=== PATIENT | female | born 1960 | race African-American/Black ===

== ENCOUNTER 2024-03-04 22:07 | Emergency (ER) | payer OTHER, SELFPAY ==
[2024-03-04 22:21] VITALS: BP 137/67
--- NOTE | 2024-03-04 22:49 | ED.GENMED ---
History of Present Illness
<GRANT Thomas - Last Filed: 03/04/24 23:01>
General
Chief Complaint: Nose Bleed
Source: patient
Time Seen by Provider: 03/04/24 22:45
Travel History
Have you had any contact with someone who has COVID-19?: No
Do you have any symptoms of coronavirus? Fever > 100 degrees, chills, cough, shortness of breath, sore throat, loss of taste or smell, muscle aches, or headache?: No
History of Present Illness
History of Present Illness:
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 Pt states she went to the bathroom after dinner and had mild
bleeding out of her L nostril. States she coughed up a pea-sized blood clot. She placed cloth to stop the bleeding and it resolved. Denies chest pain, SOB, head ache, fevers/chills. Denies recent cough, cold, nasal congestion. Denies any recent
trauma to the nose. No use of nasal sprays. No recent illnesses. No recent travel.
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 She has annual brain MRI which shows no progression.
Past History
<GRANT Thomas - Last Filed: 03/04/24 23:01>
Social History
Tobacco: Non-smoker
Alcohol: None
Drug: None
Review of Systems
<GRANT Thomas - Last Filed: 03/04/24 23:01>
Review of Systems
Allergies reviewed?: Yes
All Other Systems: ROS reviewed and negative except as documented in HPI and ROS
Constitutional: Reports no symptoms
EENT: Reports other (nose bleed)
Respiratory: Reports no symptoms
Cardiac: Reports no symptoms
ABD/GI: Reports no symptoms
: Reports no symptoms
Musculoskeletal: Reports no symptoms
Skin: Reports no symptoms
Neurological: Reports no symptoms
Endocrine: Reports no symptoms
Phy Exam
<GRANT Thomas - Last Filed: 03/04/24 23:01>
General Physical Exam
General Presentation: well appearing and no apparent distress
General age: appears stated age
General Skin: warm and dry
General Habitus: normal
General Mental: alert
General Hydration: appears well hydrated
ENT Exam
ENT Exam: pharynx normal, lymphnodes and swallowing well
Additional ENT: Nasal turbinates without blood or discharge, nonerythematous.
Cardiovascular Exam
Cardiovascular Exam: regular rate/rhythm, no edema, no gallop and no murmur
Pulmonary Exam
Pulmonary Exam: lungs clear, no respiratory distress, no rales, no crackles, no rhonchi, no wheezing and no cough
Neurological Exam
Neurological Exam: alert and oriented x3
Skin Exam
Skin Exam: normal color and warm/dry
Psychiatric Exam
Psychiatric Exam: normal mood/affect
Course
<GRANT Thomas - Last Filed: 03/04/24 23:01>
Vital Signs
Initial and Last Documented VS:
Initial Vital Signs
Temp Pulse Resp BP Pulse Ox
98.1 F 83 18 137/67 100
03/04/24 22:21 03/04/24 22:21 03/04/24 22:21 03/04/24 22:21 03/04/24 22:21
Last Documented Vital Signs
Temp Pulse Resp BP Pulse Ox
98.1 F 83 18 137/67 100
03/04/24 22:21 03/04/24 22:21 03/04/24 22:21 03/04/24 22:21 03/04/24 22:21
<Sheela Marsh DO - Last Filed: 03/04/24 23:17>
Vital Signs
Initial and Last Documented VS:
Initial Vital Signs
Temp Pulse Resp BP Pulse Ox
98.1 F 83 18 137/67 100
03/04/24 22:21 03/04/24 22:21 03/04/24 22:21 03/04/24 22:21 03/04/24 22:21
Last Documented Vital Signs
Temp Pulse Resp BP Pulse Ox
98.1 F 83 18 137/67 100
03/04/24 22:21 03/04/24 22:21 03/04/24 22:21 03/04/24 22:21 03/04/24 22:21
<GRANT Thomas - Last Filed: 03/04/24 23:01>
MDM/Problems Addressed
Differential Diagnosis Includes:
nasal tumor, nasal trauma, dryness of nasal mucosa
MDM/Problems Addressed:
64 year old female who presents for an episode of epistaxis out of the R nostril that occurred at 2030 today.
<GRANT Thomas - Last Filed: 03/04/24 23:01>
*Critical Care Note
Total Time (30-74mins, 75-104mins- exclusive of procedures): Not Applicable
<Sheela Marsh DO - Last Filed: 03/04/24 23:17>
*Pulse Oximetry
Patient hypoxic: no
ED Attending Note
<GRANT Thomas - Last Filed: 03/04/24 23:01>
-
Portions of this chart may have been created with voice recognition software.� Occasional wrong word or��sound alike� substitutions may have occurred due to the inherent limitations of voice recognition software.
<Sheela Marsh DO - Last Filed: 03/04/24 23:17>
ED Attending Note
Patient seen and examined by attending physician: Yes
I performed the substantive portion of visit, reviewed & personally made and approve the management plan that is documented in note by myself or INNA.: Yes
I performed a history and physical exam of patient and discussed management with resident, I reviewed resident's note and agree with documented findings and plan of care.: Yes
ED Attending Note:
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 She follows annually with brain MRIs with last February 28, 2023. Thus far no evidence of recurrence, MRIs have been stable.
She does admit to mild nasal congestion over the past week or 2 with mild intermittent headaches more so when she is outdoors but no fever no chills, no cough, no rhinorrhea, no earache.
Tonight around 8:30 PM she noticed spontaneous bleeding from her left nostril. She reports very small amount of bleeding from left nostril and mild postnasal drip and coughed up a scant amount of blood. Epistaxis resolved promptly with brief
course of local pressure. She has had no recurrence. No history of similar episodes in the past. She takes no anticoagulants.
GENERAL: 64-year-old woman appears younger than stated age, bright and alert, pleasant, appears in no acute distress. and daughter are accompanying. Vital signs within normal limits.
EYE: pupils equal and reactive. anicteric
NECK: Supple, nontender, no meningismus, no significant adenopathy.
ENT: posterior pharynx is clear, no blood streaking nor postnasal drip noted, oral mucosa is moist. TM clear b/l, there is a scant small streak of blood along the inferior anterior nasal septum. No active bleeding. Very minimal erythema to the
anterior septum but no ulcerations. Turbinates are moderately boggy, pale blue. No rhinorrhea.
CARDIAC: Regular rate and rhythm. no murmur.
LUNGS: Clear breath sounds bilaterally, no acute respiratory distress, no wheezes/rales/rhonchi
NEUROLOGICAL: Alert and oriented x3, no focal neuro deficits. Gait is stroud and steady.
SKIN: Warm and dry, normal color, skin intact. No rash.
MUSCULOSKELETAL: No C/C/E. peripheral pulses are full and equal b/l. No palpable tenderness.
PSYCH: Normal and appropriate interaction.
Patient presents with spontaneous left nostril epistaxis, overall mild promptly resolved without recurrence. She is noted to have very scant blood left nostril but no active bleeding.
Turbinates are moderately boggy pale blue in color consistent with allergic rhinitis.
Pituitary microadenoma resection 2018 with stable, unremarkable, annual MRIs.
She takes no anticoagulants and reports no history of bleeding disorder.
At this point with history of mild bleeding that stopped spontaneously, she does not appear to require nasal packing nor cauterization.
Recommend supportive measures, avoiding blowing, sniffing as well as picking her nose over the next 3 days, thereafter recommend initiating saline nasal spray.
Follow-up with PCP as needed.
Return precautions discussed.
Discharge Plan
Departure
Patient Disposition: Home (Routine Discharge)
Date of Disposition: 03/04/24
Time of Disposition: 23:03
Patient with high blood pressure during this ER visit?: No
Condition: Good
Discharge Problem:
Acute anterior epistaxis
Instructions: Nosebleeds (DC)
Activity Restrictions/Additional Instructions:
Over the next 3 days, no blowing, no sniffing, no picking your nose. Thereafter, I want you to start saline nasal spray, 2 sprays each nostril twice daily.
If nosebleed recurs, pinch your nose hard or conversely use nasal clip and keep in place for at least 10 to 15 minutes. If ineffective�if bleeding persists continue to pinch nose, continue nasal clip and return to the ER for further evaluation.
Follow-up with your primary care physician for recheck as needed.
Interventions
Interventions:
*Risk Screen - Suicide Last Done: 03/04/24 22:21
*General Assessment Last Done: 03/04/24 22:21
*Neglect/Abuse Screening Last Done: 03/04/24 22:21
ED- Fall Risk Assessment Last Done: 03/04/24 22:39
ED-EENT Assessment Last Done: 03/04/24 22:39
Discharge Date and Time
Print Language: CROATIAN
== END 2024-03-04 23:20 | disposition home or self-care (01) ==
LOC: EMR 22:07
PROVIDERS: EMERGENCY PHYSICIAN Emergency Medicine; FAMILY PHYSICIAN Nurse Practitioner Adult Health
DX: R04.0 Epistaxis (principal)
CPT/HCPCS: 99282

== ENCOUNTER → 2024-04-11 14:00 | Outpatient (REF) | payer OTHER, SELFPAY | LOC: PAVMRI 14:00 | PROVIDERS: ATTENDING PHYSICIAN Nurse Practitioner Adult Health; FAMILY PHYSICIAN Nurse Practitioner Adult Health; REFERRING PHYSICIAN Neurological Surgery | DX: D35.2 Benign neoplasm of pituitary gland (principal) | CPT/HCPCS: 70553; A9575 ==

== ENCOUNTER → 2024-07-25 17:10 | Outpatient (REF) | payer OTHER, SELFPAY | LOC: WDC 17:10 | PROVIDERS: ATTENDING PHYSICIAN Nurse Practitioner Adult Health | DX: Z12.31 Encounter for screening mammogram for malignant neoplasm of breast (principal) | CPT/HCPCS: 77063; 77067 ==

== ENCOUNTER → 2025-07-26 16:56 | Outpatient (REF) | payer OTHER, SELFPAY | LOC: WDC 16:56 | PROVIDERS: ATTENDING PHYSICIAN Nurse Practitioner Adult Health | DX: Z12.31 Encounter for screening mammogram for malignant neoplasm of breast (principal) | CPT/HCPCS: 77063; 77067 ==

== ENCOUNTER 2025-09-20 17:52 | Emergency (ER) | payer OTHER, SELFPAY ==
[2025-09-20 17:54] VITALS: BP 160/88
[2025-09-20 18:02] LABS: Glucose - Point of Care 110 mg/dl (70-99)
[2025-09-20 18:10] LABS: Hematocrit 42.7 % (37.0-47.0); Hemoglobin 14.1 g/dL (12.0-16.0); Mean Corp Hgb Conc. 33.0 g/dL (33.0-37.0); Mean Corpuscular Volume 93.4 fL (81.0-99.0); Nucleated Red Blood Cells % 0 %; Platelet Count 192 10^3/uL (130-400); Red Cell Dist. Width 12.2 % (11.5-14.5)
[2025-09-20 18:22] LABS: ALT (SGPT) 19 U/L (0-35); AST (SGOT) 24 U/L (14-36); Albumin 4.8 g/dl (3.5-5.0); Alkaline Phosphatase 84 U/L (38-126); Blood Urea Nitrogen 15 mg/dl (7-17); Calcium 10.0 mg/dl (8.4-10.2); Carbon Dioxide 30 mmol/L (22-30); Chloride 101 mmol/L (98-107); Glucose 116 mg/dl (70-99); Potassium 4.0 mmol/L (3.5-5.1); Sodium 136 mmol/L (135-145); Total Protein 7.8 g/dl (6.3-8.2); eGFR > 60.00
[2025-09-20 20:25] VITALS: BP 143/68
[2025-09-20 21:00] VITALS: BP 122/58
--- NOTE | 2025-09-20 21:08 | ED.GENMED ---
History of Present Illness
General
Chief Complaint: Dizziness
Time Seen by Provider: 09/20/25 20:48
History of Present Illness
History of Present Illness:
65-year-old female presents to the emergency department for evaluation as she also reports a mild headache at this time with no vision changes, fever, or neck pain. No obvious provoking or palliating factors to the dizziness. Reports one of the
episodes that occur with near syncope. No chest pain or dyspnea. Has a prior history of a brain mass status post excision approximately 3 years ago.
Past History
Social History
Tobacco: Non-smoker
Alcohol: None
Drug: None
Review of Systems
Review of Systems
Allergies reviewed?: Yes
All Other Systems: ROS reviewed and negative except as documented in HPI and ROS
Phy Exam
Physical Exam
Physical Exam:
GEN: Well appearing, NAD, WDWN
HEENT: Oral mucosa moist, no scleral icterus, no nasal congestion
Cardiac: Regular rate and rhythm, no murmur
Lung: No respiratory distress, no tachypnea, lungs clear to auscultation bilaterally
MSK: No gross deformity or injuries
Skin: Good color, no pallor or jaundice, no rashes
Neuro: AO x3; CN II-XII grossly intact. BUE strength 5/5 in all rodriguez, sensation intact and symmetric. BLE strength 5/5 in all rodriguez, sensation intact and symmetric
Psych: Calm, cooperative
Course
Orders/Labs/Results
Orders:
Orders
09/20/25 17:54
Electrocardiogram (*1) Urgent
Reason for Study: Vertigo / Dizzy
EKG- Treatment ONCE
09/20/25 18:01
Complete Blood Count/With Diff Urgent
Comprehensive Metabolic Panel Urgent
09/20/25 21:08
Add On- LAB Urgent
Tests Added?: carboxyhemoglobin
CT Head W/o Iv Contrast Urgent
Comment:
Reason For Exam: dizziness
09/20/25 22:32
Carboxyhemoglobin Urgent
Comment: CANNOT ADD ON. MUST BE COLLECTED.
Abnormal Lab Results
09/20/25 09/20/25
18:00 18:01
MPV 11.7 H fL
(7.4-10.4)
Glucose 116 H mg/dl
(70-99)
POC Glucose 110 H mg/dl
(70-99)
09/20/25 18:01
09/20/25 18:01
Vital Signs
Initial and Last Documented VS:
Initial Vital Signs
Temp Pulse Resp BP Pulse Ox
98 F 78 16 160/88 98
09/20/25 17:54 09/20/25 17:54 09/20/25 17:54 09/20/25 17:54 09/20/25 17:54
Last Documented Vital Signs
Temp Pulse Resp BP Pulse Ox
98 F 78 16 126/62 100
09/20/25 17:54 09/20/25 22:32 09/20/25 22:42 09/20/25 22:32 09/20/25 22:32
MDM/Problems Addressed
MDM/Problems Addressed:
Labs and imaging reassuring. Negative carboxyhemoglobin. Clinical presentation not consistent with benign positional vertigo. No clinical signs of cardiac dysrhythmia. Unclear etiology however recommend she follow-up with primary care physician
for further workup if symptoms persist
Comment
Comment:
EKG independently interpreted by me shows a normal sinus rhythm at a rate of [address] changes concerning for ischemia
*Pulse Oximetry
SaO2: 98
Oxygen Mode of Delivery: Room air
Patient hypoxic: no
*Critical Care Note
Total Time (30-74mins, 75-104mins- exclusive of procedures): Not Applicable
ED Attending Note
-
Portions of this chart may have been created with voice recognition software.� Occasional wrong word or��sound alike� substitutions may have occurred due to the inherent limitations of voice recognition software.
Discharge Plan
Departure
Patient Disposition: Home (Routine Discharge)
Date of Disposition: 09/20/25
Time of Disposition: 22:47
Patient with high blood pressure during this ER visit?: No
Discharge Problem:
Dizziness
Instructions: Dizziness, Nonvertigo, (DC)
Referrals:
Tawnya Rosales CRNP [Family Provider, General]
Interventions
Interventions:
*Risk Screen - Suicide Last Done: 09/20/25 17:56
*General Assessment Last Done: 09/20/25 21:56
*Neglect/Abuse Screening Last Done: 09/20/25 17:56
*ED COVID-19 Vaccine History Last Done: 09/20/25 22:42
*ED Influenza Vaccine History Last Done: 09/20/25 22:42
[facility] Fall Risk Assessment Tool Last Done: 09/20/25 22:42
ED- Neurological Assessment Last Done: 09/20/25 21:56
ED- Cardiac Assessment Last Done: 09/20/25 21:56
ED Swallowing Screen Last Done: 09/20/25 21:56
Discharge Date and Time
Print Language: DANISH
[2025-09-20 22:32] VITALS: BP 126/62
[2025-09-20 22:39] LABS: Carboxyhemoglobin 1.3 %
== END 2025-09-20 22:55 | disposition home or self-care (01) ==
LOC: EMR 17:52
PROVIDERS: Emergency Medicine; EMERGENCY PHYSICIAN Emergency Medicine; FAMILY PHYSICIAN Nurse Practitioner Adult Health
DX: R42 Dizziness and giddiness (principal); Z86.011 Personal history of benign neoplasm of the brain
CPT/HCPCS: 99284; 70450; 80053; 82375; 82962; 85025; 93005